=== PATIENT | female | born 1980 | race American Indian/Alaskan Native ===

== ENCOUNTER 2016-12-01 10:53 | Emergency (ER) | payer MEDICAID ==
--- NOTE | 2016-12-01 11:12 | EDM.PDOC ---
ED HPI GENERAL MEDICAL PROBLEM - General Stated Complaint: CHEST PAIN/HANDS SWEATY Time Seen by Provider: 12/01/16 11:05 Source of Information: Reports: Patient History Limitations: Reports: No limitations - History of Present Illness INITIAL COMMENTS - FREE TEXT/NARRATIVE: This 36 yo female patient reports to the ED with chest pains, sweaty palms and feeling like she is going to pass out. The patient was already seen in the clinic this morning, lab work was done, but the patient reports she was feeling worse. The patient came to the ED for treatment. Onset: today Duration: Constant, Getting worse Location: Reports: chest Quality: Reports: Ache Severity: moderate Improves with: Reports: None Worsens with: Reports: None Context: Reports: Other Associated Symptoms: Reports: chest pain - Related Data Allergies Allergy/AdvReac Type Severity Reaction Status Date / Time lorazepam [From Ativan] Allergy Agitation Verified 10/26/16 10:47 Home Meds: Home Meds ClonazePAM [KlonoPIN] 0.5 mg PO QAM 07/22/16 [History] ClonazePAM [KlonoPIN] 2 mg PO BEDTIME 07/22/16 [History] Pantoprazole Sodium [Protonix] 40 mg PO BID 09/28/16 [History] Past Medical History - Past Health History Medical/Surgical History: Denies Medical/Surgical History HEENT History: Reports: Impaired vision Other HEENT History: wears glasses Cardiovascular History: Reports: None Respiratory History: Reports: None Gastrointestinal History: Reports: GERD Genitourinary History: Reports: None 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 OB/BYN History: c-sect Musculoskeletal History: Reports: None Neurological History: Reports: Migraines Psychiatric History: Reports: Anxiety, Depression, Learning disability, Suicide attempt, Suicidal ideation Endocrine/Metabolic History: Reports: None Hematologic History: Reports: None Immunologic History: Reports: None Oncologic (Cancer) History: Reports: None Dermatologic History: Reports: Eczema - Infectious Disease History Infectious Disease History: Reports: Mumps - Past Surgical History Head Surgeries/Procedures: Reports: None HEENT Surgical History: Reports: Eye surgery Cardiovascular Surgical History: Reports: None Respiratory Surgical History: Reports: None GI Surgical History: Reports: Cholecystectomy Female Surgical History: Reports: section Endocrine Surgical History: Reports: None Neurological Surgical History: Reports: None Social & Family History - Family History Family Medical History: Noncontributory Cardiac: Reports: [place], Other (see below) Other Cardiac Family History: mom of cardiac arrest at age 52 : Reports: Renal disease/insufficiency Endocrine/Metabolic: Reports: Diabetes, type II - Tobacco Use Smoking Status *Q: Never Smoker Second Hand Smoke Exposure: No - Caffeine Use Caffeine Use: Reports: None - Alcohol Use Days Per Week of Alcohol Use: 0 - Recreational Drug Use Recreational Drug Use: No - Sexual History Sexual History: Reports: Sexually active - Living Situation & Occupation Living situation: Reports: Occupation: disabled ED ROS GENERAL - Review of Systems Review Of Systems: ROS reveals no pertinent complaints other than HPI. ED EXAM, GENERAL - Physical Exam Exam: See Below Exam Limited By: No limitations General Appearance: alert, WD/WN, anxious, mild distress, obese Eye Exam: bilateral eye: EOMI, normal inspection, PERRL Ears: normal external exam, normal canal, hearing grossly normal, normal TMs Nose: normal inspection, normal mucosa, no blood Throat/Mouth: Normal inspection, Normal lips, Normal teeth, Normal gums, Normal oropharynx, Normal voice, No airway compromise Head: atraumatic, normocephalic Neck: normal inspection, supple, non-tender, full range of motion Respiratory/Chest: no respiratory distress, lungs clear, normal breath sounds, no accessory muscle use, chest non-tender Cardiovascular: normal peripheral pulses, regular rate, rhythm, no edema, no gallop, no JVD, no murmur, no rub GI/Abdominal: normal bowel sounds, soft, non tender, no organomegaly, no distention, no abnormal bruit, no mass (Female) Exam: Deferred Rectal (Female) Exam: Deferred Back Exam: normal inspection, full range of motion, NT Extremities: normal inspection, normal range of motion, non-tender, normal capillary refill, no pedal edema Neurological: alert, oriented, CN II-XII intact, normal cognition, normal gait, normal reflexes, no motor/sensory deficits Psychiatric: anxious Skin Exam: Warm, Dry, Intact, Normal color, No rash Lymphatic: no adenopathy Course - Orders/Labs/Meds Orders: Active Orders 24 hr Category Date Time Status EKG Documentation Completion [RC] URGENT Care 12/01/16 11:03 Active Labs: Laboratory Tests 12/01/16 12/01/16 12/01/16 Range/Units 11:15 11:15 11:15 WBC 4.2 L (5.0-10.0) 10^3/uL RBC 3.97 L (4.2-5.4) 10^6/uL Hgb 10.6 L (12.0-16.0) g/dL Hct 33.1 L (37.0-47.0) % MCV 83.4 (80-100) fL MCH 26.7 L (27.0-34.0) pg MCHC 32.0 L (33.0-35.0) g/dL Plt Count 323 (150-450) 10^3/uL Neut % (Auto) 73.2 (42.2-75.2) % Lymph % (Auto) 19.8 L (20.5-50.1) % [place] % (Auto) 4.7 (2-8) % Eos % (Auto) 2.1 (1.0-3.0) % Baso % (Auto) 0.2 (0.0-1.0) % Sodium 137 (135-145) mmol/L Potassium 3.5 L (3.6-5.0) mmol/L Chloride 105 (101-111) mmol/L Carbon Dioxide 22.0 (21.0-31.0) mmol/L Anion Gap 13.5 BUN 21 H (7-18) mg/dL Creatinine 0.5 L (0.6-1.3) mg/dL Est Cr Clr Drug Dosing TNP Estimated GFR (MDRD) > 60 BUN/Creatinine Ratio 42.00 Glucose 93 (74-105) mg/dL Calcium 8.8 (8.4-10.2) mg/dl Total Bilirubin 0.7 (0.2-1.0) mg/dL AST 20 (10-42) IU/L ALT 16 (10-60) IU/L Alkaline Phosphatase 66 (42-121) IU/L Troponin I < 0.02 (0.00-0.02) ng/ml Total Protein 7.6 (6.7-8.2) g/dl Albumin 3.9 (3.2-5.5) g/dl Globulin 3.7 Albumin/Globulin Ratio 1.05 Urine Color (YELLOW) Urine Appearance (CLEAR) Urine pH (5.0-9.0) Ur Specific [place] (1.005-1.030) Urine Protein (NEGATIVE) Urine Glucose (UA) (NEGATIVE) Urine Ketones (NEGATIVE) Urine Occult Blood (NEGATIVE) Urine Nitrite (NEGATIVE) Urine Bilirubin (NEGATIVE) Urine Urobilinogen (0.2-1.0) mg/dL Ur Leukocyte Esterase (NEGATIVE) Urine RBC /HPF Urine WBC (0-5/HPF) /HPF Ur Epithelial Cells /HPF Urine Bacteria (0-FEW/HPF) /HPF Urine HCG, Qual Salicylates < 4 Urine Opiates Screen (NEGATIVE) Ur Oxycodone Screen (NEGATIVE) Urine Methadone Screen (NEGATIVE) Acetaminophen < 10 Ur Barbiturates Screen (NEGATIVE) U Tricyclic Antidepress (NEGATIVE) Ur Phencyclidine Scrn (NEGATIVE) Ur Amphetamine Screen (NEGATIVE) U Methamphetamines Scrn (NEGATIVE) Urine MDMA Screen (NEGATIVE) U Benzodiazepines Scrn (NEGATIVE) Urine Cocaine Screen (NEGATIVE) U Marijuana (THC) Screen (NEGATIVE) Ethyl Alcohol < 5 mg/dL 12/01/16 12/01/16 12/01/16 Range/Units 11:31 11:31 11:31 WBC (5.0-10.0) 10^3/uL RBC (4.2-5.4) 10^6/uL Hgb (12.0-16.0) g/dL Hct (37.0-47.0) % MCV (80-100) fL MCH (27.0-34.0) pg MCHC (33.0-35.0) g/dL Plt Count (150-450) 10^3/uL Neut % (Auto) (42.2-75.2) % Lymph % (Auto) (20.5-50.1) % [place] % (Auto) (2-8) % Eos % (Auto) (1.0-3.0) % Baso % (Auto) (0.0-1.0) % Sodium (135-145) mmol/L Potassium (3.6-5.0) mmol/L Chloride (101-111) mmol/L Carbon Dioxide (21.0-31.0) mmol/L Anion Gap BUN (7-18) mg/dL Creatinine (0.6-1.3) mg/dL Est Cr Clr Drug Dosing Estimated GFR (MDRD) BUN/Creatinine Ratio Glucose (74-105) mg/dL Calcium (8.4-10.2) mg/dl Total Bilirubin (0.2-1.0) mg/dL AST (10-42) IU/L ALT (10-60) IU/L Alkaline Phosphatase (42-121) IU/L Troponin I (0.00-0.02) ng/ml Total Protein (6.7-8.2) g/dl Albumin (3.2-5.5) g/dl Globulin Albumin/Globulin Ratio Urine Color Red (YELLOW) Urine Appearance Cloudy (CLEAR) Urine pH 6.0 (5.0-9.0) Ur Specific [place] 1.025 (1.005-1.030) Urine Protein 100 H (NEGATIVE) Urine Glucose (UA) Negative (NEGATIVE) Urine Ketones 80 H (NEGATIVE) Urine Occult Blood Large H (NEGATIVE) Urine Nitrite Negative (NEGATIVE) Urine Bilirubin Small H (NEGATIVE) Urine Urobilinogen 4.0 H (0.2-1.0) mg/dL Ur Leukocyte Esterase Negative (NEGATIVE) Urine RBC >100 H /HPF Urine WBC 0-5 (0-5/HPF) /HPF Ur Epithelial Cells Moderate H /HPF Urine Bacteria Moderate H (0-FEW/HPF) /HPF Urine HCG, Qual Negative Salicylates Urine Opiates Screen Negative (NEGATIVE) Ur Oxycodone Screen Negative (NEGATIVE) Urine Methadone Screen Negative (NEGATIVE) Acetaminophen Ur Barbiturates Screen Negative (NEGATIVE) U Tricyclic Antidepress Negative (NEGATIVE) Ur Phencyclidine Scrn Negative (NEGATIVE) Ur Amphetamine Screen Negative (NEGATIVE) U Methamphetamines Scrn Negative (NEGATIVE) Urine MDMA Screen Negative (NEGATIVE) U Benzodiazepines Scrn Negative (NEGATIVE) Urine Cocaine Screen Negative (NEGATIVE) U Marijuana (THC) Screen Negative (NEGATIVE) Ethyl Alcohol mg/dL Departure - Departure Time of Disposition: 12:31 Disposition: Home, Self-Care 01 Condition: fair Clinical Impression: Anxiety Instructions: Panic Attacks, [id number] Care Plan Goals: The patient was advised of the examination, lab and EKG results during the visit. The patient was encouraged to follow-up with her primary care facility for possible medication changes to help with her anxiety. If the patient has any additional symptoms or concerns, the patient should follow-up with her primary care facility or return to the emergency department. - My Orders Last 24 Hours: My Active Orders 12/01/16 11:03 EKG Documentation Completion [RC] URGENT - Assessment/Plan Last 24 Hours: My Active Orders 12/01/16 11:03 EKG Documentation Completion [RC] URGENT
[2016-12-01 11:49] LABS: CHLORIDE,CL 105 mmol/L (101-111); SODIUM,NA 137 mmol/L (135-145)
[2016-12-01 11:50] LABS: ACETAMINOPHEN < 10
[2016-12-01 12:36] VITALS: BP 102/42
--- NOTE | 2016-12-02 11:00 | EKG ---
12/01/2016 - JERMAINE CHILDS - TIME: 11:00 a.m. EKG shows normal sinus rhythm. There is ST-segment elevation inferiorly. It could be a normal variant. [facility] /[id number]
== END 2016-12-01 12:39 | disposition home or self-care (01) ==
LOC: DL.ED 10:53
DX: F41.9 Anxiety disorder, unspecified (principal); K21.9 Gastro-esophageal reflux disease without esophagitis; F32.9 Major depressive disorder, single episode, unspecified; Z98.49 Cataract extraction status, unspecified eye; Z90.49 Acquired absence of other specified parts of digestive tract; Z79.899 Other long term (current) drug therapy; Z88.8 Allergy status to other drugs, medicaments and biological substances
CPT/HCPCS: 36415; 80053; 80305; 81001; 81025; 84484; 85025; 93005; 99284; G0480

== ENCOUNTER 2016-12-03 10:28 | Emergency (ER) | payer MEDICAID ==
--- NOTE | 2016-12-03 10:45 | EDM.PDOC ---
ED HPI Behavioral Health - General Chief Complaint: Behavioral/Psych Stated Complaint: BY AMBULANCE Time Seen by Provider: 12/03/16 10:44 Source of Information: Reports: Patient - History of Present Illness INITIAL COMMENTS - FREE TEXT/NARRATIVE: Pt states that she is having chest pain that she believes may be an anxiety attack but states that she has never had one like this. States that she would like to get into an inpatient hospital for her anxiety. c/o numbness and tingling to extremities as well. no other complaints. 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) - SAD Persons Scale (SPS) SPS Sex: Female SPS Age: Between 18-65 Years of Age SPS Depression: No SPS Previous Suicide Attempts: Yes SPS Alcohol Abuse/Drug Abuse: No SPS Rational Thinking Loss: No SPS Social Support Deficit: No SPS Organized Suicide Plan: No SPS No Spouse/Significant Other: No SPS Sickness: No SPS Sad Person Scale Score: 1 - Related Data Allergies Allergy/AdvReac Type Severity Reaction Status Date / Time lorazepam [From Ativan] Allergy Agitation Verified 10/26/16 10:47 Home Medications: Home Meds ClonazePAM [KlonoPIN] 0.5 mg PO BEDTIME 07/22/16 [History] ClonazePAM [KlonoPIN] 0.5 mg PO QAM 07/22/16 [History] Pantoprazole Sodium [Protonix] 40 mg PO BID 09/28/16 [History] Past Medical History - Past Health History Medical/Surgical History: Denies Medical/Surgical History HEENT History: Reports: Impaired vision Other HEENT History: wears glasses Cardiovascular History: Reports: None Respiratory History: Reports: None Gastrointestinal History: Reports: GERD Genitourinary History: Reports: None 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 OB/BYN History: c-sect Musculoskeletal History: Reports: None Neurological History: Reports: Migraines Psychiatric History: Reports: Anxiety, Depression, Learning disability, Suicide attempt, Suicidal ideation Endocrine/Metabolic History: Reports: None Hematologic History: Reports: None Immunologic History: Reports: None Oncologic (Cancer) History: Reports: None Dermatologic History: Reports: Eczema - Infectious Disease History Infectious Disease History: Reports: Mumps - Past Surgical History Head Surgeries/Procedures: Reports: None HEENT Surgical History: Reports: Eye surgery Cardiovascular Surgical History: Reports: None Respiratory Surgical History: Reports: None GI Surgical History: Reports: Cholecystectomy Female Surgical History: Reports: section Endocrine Surgical History: Reports: None Neurological Surgical History: Reports: None Social & Family History - Family History Family Medical History: Noncontributory Cardiac: Reports: [place], Other (see below) Other Cardiac Family History: mom of cardiac arrest at age 52 : Reports: Renal disease/insufficiency Endocrine/Metabolic: Reports: Diabetes, type II - Tobacco Use Smoking Status *Q: Never Smoker Second Hand Smoke Exposure: No - Caffeine Use Caffeine Use: Reports: None - Alcohol Use Days Per Week of Alcohol Use: 0 - Recreational Drug Use Recreational Drug Use: No - Sexual History Sexual History: Reports: Sexually active - Living Situation & Occupation Living situation: Reports: Occupation: disabled ED ROS GENERAL - Review of Systems Review Of Systems: See Below Respiratory: Reports: No Symptoms Cardiovascular: Reports: Chest pain Psychiatric: Reports: Anxiety ED EXAM, BEHAVIORAL HEALTH - Physical Exam Exam: See Below Exam Limited By: No limitations General Appearance: alert, WD/WN, no apparent distress Respiratory/Chest: no respiratory distress, lungs clear, normal breath sounds, no accessory muscle use, chest non-tender Cardiovascular: normal peripheral pulses, regular rate, rhythm, no edema, no gallop, no JVD, no murmur, no rub Neurological: alert, normal mood/affect, CN II-XII intact, normal cognition, normal gait, normal reflexes, no motor/sensory deficits, oriented x 3 Psychiatric: alert, normal affect, normal cognition, oriented, tearful COURSE, BEHAVIORAL HEALTH COMP - Course Vital Signs: Last Vital Signs Temp 97.3 F 12/03/16 11:28 Pulse 74 12/03/16 11:28 Resp 12 12/03/16 11:28 BP 103/59 L 12/03/16 11:28 Pulse Ox 99 12/03/16 11:28 Orders, Labs, Meds: Active Orders 24 hr Category Date Time Status EKG Documentation Completion [RC] STAT Care 12/03/16 11:00 Active Laboratory Tests 12/03/16 12/03/16 Range/Units 11:18 11:18 Creatine Kinase 140 (26-174) IU/L Creatine Kinase Index 0.9 (0-2.4) % CK-MB (CK-2) 1.30 (0.4-4.7) ng/mL Troponin I < 0.02 (0.00-0.02) ng/ml Medications Discontinued Medications Generic Name Dose Route Start Last Admin Trade Name [place] PRN Reason Stop Dose Admin Alprazolam 0.5 mg 12/03/16 11:57 12/03/16 12:22 Xanax PO 12/03/16 11:58 Not Given ONETIME ONE Clonazepam 1 mg 12/03/16 12:08 Klonopin PO 12/03/16 12:09 ONETIME ONE Re-Assessment/Re-Exam: Pt calm, no complaints. Departure - Departure Time of Disposition: 12:24 Disposition: Home, Self-Care 01 Condition: good Clinical Impression: Panic disorder, Anxiety Instructions: Panic Attacks, [id number] Forms: ED Department Discharge Additional Instructions: Make sure that you follow up with your psych doctor to have your medication readjusted to help decrease your panic attacks. - My Orders Last 24 Hours: My Active Orders 12/03/16 11:00 EKG Documentation Completion [RC] STAT - Assessment/Plan Last 24 Hours: My Active Orders 12/03/16 11:00 EKG Documentation Completion [RC] STAT
[2016-12-03 11:28] VITALS: BP 103/59
[2016-12-03] MEDS ORDERED: ALPRAZolam 0.5 MG Tab PO ONE (11:57)
[2016-12-03] MEDS ORDERED: ClonazePAM 0.5 MG Tab PO ONE (12:08)
--- NOTE | 2016-12-06 11:49 | EKG ---
12/03/2016 - JERMAINE CHILDS - TIME OF EK hours. Normal sinus rhythm. Nonspecific ST-segment changes. [facility] /[id number]
== END 2016-12-03 12:32 | disposition home or self-care (01) ==
LOC: DL.ED 10:28
DX: F41.0 Panic disorder [episodic paroxysmal anxiety] (principal); K21.9 Gastro-esophageal reflux disease without esophagitis; F32.9 Major depressive disorder, single episode, unspecified; Z88.8 Allergy status to other drugs, medicaments and biological substances; Z90.49 Acquired absence of other specified parts of digestive tract; Z79.899 Other long term (current) drug therapy
CPT/HCPCS: 36415; 82550; 82553; 84484; 93005; 99283; A9270

== ENCOUNTER 2016-12-04 09:56 | Emergency (ER) | payer MEDICAID ==
--- NOTE | 2016-12-04 10:39 | EDM.PDOC ---
ED HPI Behavioral Health - General Chief Complaint: Behavioral/Psych Stated Complaint: FEELS WEAK, EYES CROSS Time Seen by Provider: 12/04/16 10:11 Source of Information: Reports: Patient - History of Present Illness INITIAL COMMENTS - FREE TEXT/NARRATIVE: Pt states that she is having anxiety and wants to be placed in an inpatient psych hospital. Denies pain of any kind. States that her anxiety is worse than yesterday but she does not want any medication. Denies suicidal or homicidal ideation. States that she feels like she should be on a higher dose of her klonopin because the higher dose helped however pt is non compliant with psych appointments. Had an appointment on Monday for medication adjustments but was not able to go due to family dynamics. States that she does not want to be placed on antidepressants because it makes her suicidal. States that she does not want to try anything else. She states that she feels stressed. Onset of Symptoms: Reports: today Symptom Onset Date: 12/04/16 Duration of Symptoms: Reports: Chronic Severity: moderate Context, Behavioral Health: Reports: living situation, family dynamics Associated Symptoms: Reports: anxiety - SAD Persons Scale (SPS) SPS Sex: Female SPS Age: Between 18-65 Years of Age SPS Depression: Yes SPS Previous Suicide Attempts: Yes SPS Alcohol Abuse/Drug Abuse: No SPS Rational Thinking Loss: Yes SPS Social Support Deficit: Yes SPS Organized Suicide Plan: No SPS No Spouse/Significant Other: No SPS Sickness: No SPS Sad Person Scale Score: 4 - Related Data Allergies Allergy/AdvReac Type Severity Reaction Status Date / Time lorazepam [From Ativan] Allergy Agitation Verified 10/26/16 10:47 Home Medications: Home Meds ClonazePAM [KlonoPIN] 0.5 mg PO BEDTIME 07/22/16 [History] ClonazePAM [KlonoPIN] 0.5 mg PO QAM 07/22/16 [History] Pantoprazole Sodium [Protonix] 40 mg PO BID 09/28/16 [History] Past Medical History - Past Health History Medical/Surgical History: Denies Medical/Surgical History HEENT History: Reports: Impaired vision Other HEENT History: wears glasses Cardiovascular History: Reports: None Respiratory History: Reports: None Gastrointestinal History: Reports: GERD Genitourinary History: Reports: None 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 OB/BYN History: c-sect Musculoskeletal History: Reports: None Neurological History: Reports: Migraines Psychiatric History: Reports: Anxiety, Depression, Learning disability, Suicide attempt, Suicidal ideation Other Psychiatric History: dependent personality disorder Endocrine/Metabolic History: Reports: None Hematologic History: Reports: None Immunologic History: Reports: None Oncologic (Cancer) History: Reports: None Dermatologic History: Reports: Eczema - Infectious Disease History Infectious Disease History: Reports: Mumps - Past Surgical History Head Surgeries/Procedures: Reports: None HEENT Surgical History: Reports: Eye surgery Cardiovascular Surgical History: Reports: None Respiratory Surgical History: Reports: None GI Surgical History: Reports: Cholecystectomy Female Surgical History: Reports: section Endocrine Surgical History: Reports: None Neurological Surgical History: Reports: None Social & Family History - Family History Family Medical History: Noncontributory Cardiac: Reports: [place], Other (see below) Other Cardiac Family History: mom of cardiac arrest at age 52 : Reports: Renal disease/insufficiency Endocrine/Metabolic: Reports: Diabetes, type II - Tobacco Use Smoking Status *Q: Unknown Ever Smoked Second Hand Smoke Exposure: No - Caffeine Use Caffeine Use: Reports: Soda - Alcohol Use Days Per Week of Alcohol Use: 0 - Recreational Drug Use Recreational Drug Use: No - Sexual History Sexual History: Reports: Sexually active - Living Situation & Occupation Living situation: Reports: Occupation: disabled ED ROS GENERAL - Review of Systems Review Of Systems: ROS reveals no pertinent complaints other than HPI. Psychiatric: Reports: Anxiety ED EXAM, BEHAVIORAL HEALTH - Physical Exam Exam: See Below Exam Limited By: No limitations General Appearance: alert, WD/WN, no apparent distress Ears: normal external exam, normal canal, hearing grossly normal, normal TMs Nose: normal inspection Respiratory/Chest: no respiratory distress, lungs clear, normal breath sounds, no accessory muscle use, chest non-tender Cardiovascular: normal peripheral pulses, regular rate, rhythm, no edema, no gallop, no JVD, no murmur, no rub Neurological: alert, normal mood/affect, CN II-XII intact, normal cognition, normal gait, normal reflexes, no motor/sensory deficits, oriented x 3 Psychiatric: alert, normal affect, normal cognition, oriented, tearful COURSE, BEHAVIORAL HEALTH COMP - Course Vital Signs: Last Vital Signs Temp 96.8 F 12/04/16 10:03 Pulse 81 12/04/16 10:03 Resp 20 12/04/16 10:03 BP 98/72 12/04/16 10:15 Pulse Ox 97 12/04/16 10:03 Re-Assessment/Re-Exam: Complains that no one will help her. Spoke with crisis line who states that patient does not comply and will not meet inpatient criteria. Offered Klonopin however pt states that she does not want it because it will make her sleepy. States that she just wants to go to a psych hospital. Encouraged patient to try her coping mechanisms and to keep her appointment tomorrow with her therapist and to call crisis line when she is felling overwhelmed. Pt is calm, with no s/ s of anxiety currently. States that she will call the crisis line soon. Departure - Departure Time of Disposition: 10:53 Disposition: Home, Self-Care 01 Condition: good Clinical Impression: Anxiety Instructions: Panic Attacks, [id number] Forms: ED Department Discharge
== END 2016-12-04 10:39 | disposition home or self-care (01) ==
LOC: DL.ED 09:56
CPT/HCPCS: 99283

== ENCOUNTER 2016-12-07 15:29 | Emergency (ER) | payer MEDICAID ==
[2016-12-07 15:57] VITALS: BP 99/78
--- NOTE | 2016-12-07 16:19 | EDM.PDOC ---
ED HPI EYE COMPLAINT - General Chief Complaint: Eye Problems Stated Complaint: EYES SEEMS WIERD Time Seen by Provider: 12/07/16 16:13 Source: Reports: Patient History Limitations: Reports: No limitations - History of Present Illness INITIAL COMMENTS - FREE TEXT/NARRATIVE: Pt states that she has been having a headache since monday with vision changes. Denies being the worst headache and states that she has had similar pain in the past. Went to see an eye doctor today who told her to follow up with a neurologist. States that she felt like she is now seeing "pepper-like spots in my eyes that just started while I was reading, but the eye doctor did not have any more appointments and the clinic did not have appointments so they told me to go to the ER if things got worse". Denies other complaints currently. Symptom Onset Date: 12/07/16 Symptom Onset Time: 14:00 Timing/Duration: Reports: Getting worse Quality: Reports: Ache, Same as previous episode Improves with: Reports: None Worsens with: Reports: None - Related Data Allergies/ADRs: Allergies lorazepam [From Ativan] Allergy (Verified 12/08/16 08:50) Agitation pt taking clonazepam currently Home Meds: Ambulatory Orders Medication Instructions Recorded Confirmed ClonazePAM [KlonoPIN] 0.5 mg PO BEDTIME 07/22/16 12/08/16 ClonazePAM [KlonoPIN] 0.5 mg PO QAM 07/22/16 12/08/16 Pantoprazole Sodium [Protonix] 40 mg PO BID 09/28/16 12/08/16 Citalopram Hydrobromide [Celexa] 20 mg PO DAILY 12/07/16 12/08/16 Past Medical History - Past Health History Medical/Surgical History: Denies Medical/Surgical History HEENT History: Reports: Impaired vision Other HEENT History: wears glasses Cardiovascular History: Reports: None Respiratory History: Reports: None Gastrointestinal History: Reports: GERD Genitourinary History: Reports: None 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 OB/BYN History: c-sect Musculoskeletal History: Reports: None Neurological History: Reports: Migraines Psychiatric History: Reports: Anxiety, Depression, Learning disability, Suicide attempt, Suicidal ideation Other Psychiatric History: dependent personality disorder Endocrine/Metabolic History: Reports: None Hematologic History: Reports: None Immunologic History: Reports: None Oncologic (Cancer) History: Reports: None Dermatologic History: Reports: Eczema - Infectious Disease History Infectious Disease History: Reports: Chicken pox, Mumps - Past Surgical History Head Surgeries/Procedures: Reports: None HEENT Surgical History: Reports: Eye surgery Cardiovascular Surgical History: Reports: None Respiratory Surgical History: Reports: None GI Surgical History: Reports: Cholecystectomy Female Surgical History: Reports: section Endocrine Surgical History: Reports: None Neurological Surgical History: Reports: None Social & Family History - Family History Family Medical History: Noncontributory Cardiac: Reports: [place], Other (see below) Other Cardiac Family History: mom of cardiac arrest at age 52 : Reports: Renal disease/insufficiency Endocrine/Metabolic: Reports: Diabetes, type II - Tobacco Use Smoking Status *Q: Never Smoker Second Hand Smoke Exposure: No - Caffeine Use Caffeine Use: Reports: Soda - Alcohol Use Days Per Week of Alcohol Use: 0 - Recreational Drug Use Recreational Drug Use: No - Sexual History Sexual History: Reports: Sexually active - Living Situation & Occupation Living situation: Reports: Occupation: disabled ED ROS GENERAL - Review of Systems Review Of Systems: See Below HEENT: Reports: Vision change Neurological: Reports: Headache ED EXAM GENERAL W FULL EYE - Physical Exam Exam: See Below Exam Limited By: No limitations General Appearance: alert, WD/WN, no apparent distress Eye Exam: bilateral eye: EOMI, normal inspection, PERRL With Correction: Yes Eyelids: bilateral: normal appearance Conjunctiva & Sclera: bilateral: normal appearance Cornea Exam: bilateral: normal appearance Extraocular Movements: bilateral: intact Pupils: normal accommodation Pupillary Size: bilateral: 4 mm Pupillary Reaction: bilateral: brisk Anterior Chamber: bilateral: normal appearance Posterior Chamber: bilateral: normal funduscopic Ears: normal external exam, other (fluid behind TM bilaterally) Nose: normal inspection, normal mucosa, no blood Throat/Mouth: Normal inspection, Normal lips, Normal teeth, Normal gums, Normal oropharynx, Normal voice, No airway compromise Head: atraumatic Neck: normal inspection, supple, non-tender, full range of motion Respiratory/Chest: no respiratory distress, lungs clear, normal breath sounds, no accessory muscle use, chest non-tender Cardiovascular: normal peripheral pulses, regular rate, rhythm, no edema, no gallop, no JVD, no murmur, no rub Neurological: alert, oriented, CN II-XII intact, normal cognition, normal gait, normal reflexes, no motor/sensory deficits Psychiatric: normal affect, normal mood Course - Vital Signs Last Recorded V/S: Last Vital Signs Temp 98.0 F 12/07/16 15:53 Pulse 86 12/07/16 15:53 Resp 20 12/07/16 15:53 BP 99/78 12/07/16 15:53 Pulse Ox 99 12/07/16 15:53 - Orders/Labs/Meds Orders: Active Orders 24 hr Category Date Time Status Blood Glucose Check, Bedside [RC] ONETIME Care 12/07/16 16:57 Active Labs: Laboratory Tests 12/07/16 Range/Units 17:18 POC Glucose 71 (70-105) mg/dl Meds: Medications Discontinued Medications Generic Name Dose Route Start Last Admin Trade Name Maico PRN Reason Stop Dose Admin Ibuprofen 800 mg 12/07/16 17:00 12/07/16 17:18 Motrin PO 12/07/16 17:01 Not Given ONETIME ONE - Re-Assessments/Exams Free Text/Narrative Re-Assessment/Exam: 12/07/16 17:38 Informed pt that she did not need CT of her head and pt now c/o dizziness. Denies Headache now. Pt continues to change story of cheif complaint. States that she needs a head CT. States that she wants to go to [place] to see a neurologist because none are available currently at this facility. Per pt, she is being set up with a neurologist by her PCP. Departure - Departure Time of Disposition: 18:00 Disposition: Against Medical Advice 07 Condition: good Clinical Impression: Headache Qualifiers: Headache type: unspecified Headache chronicity pattern: acute headache Intractability: not intractable Qualified Code(s): R51 - Headache Instructions: General Headache Without Cause Forms: ED Department Discharge - My Orders Last 24 Hours: My Active Orders 12/07/16 16:57 Blood Glucose Check, Bedside [RC] ONETIME - Assessment/Plan Last 24 Hours: My Active Orders 12/07/16 16:57 Blood Glucose Check, Bedside [RC] ONETIME
[2016-12-07] MEDS ORDERED: Ibuprofen 800 MG Tab PO ONE (17:00)
== END 2016-12-07 17:44 | disposition left against medical advice (07) ==
LOC: DL.ED 15:29
DX: R51 Headache (principal); K21.9 Gastro-esophageal reflux disease without esophagitis; F41.9 Anxiety disorder, unspecified; F32.9 Major depressive disorder, single episode, unspecified; Z90.49 Acquired absence of other specified parts of digestive tract; Z88.8 Allergy status to other drugs, medicaments and biological substances
CPT/HCPCS: 82962; 99283

== ENCOUNTER 2016-12-08 08:22 | Emergency (ER) | payer MEDICAID ==
--- NOTE | 2016-12-08 09:15 | EDM.PDOC ---
ED HPI Behavioral Health - General Chief Complaint: General Stated Complaint: [id number] BODY FEELS WEIRD Time Seen by Provider: 12/08/16 09:10 Source of Information: Reports: Patient Exam Limitations: Reports: No limitations - History of Present Illness INITIAL COMMENTS - FREE TEXT/NARRATIVE: Pt states that she has an appointment with her PCP this am but wants to be "checked for diabetes". Pt was present yesterday and had a blood glucose check that was WNL and has a family history of diabetes. Symptom Onset Date: 12/08/16 - Related Data Allergies Allergy/AdvReac Type Severity Reaction Status Date / Time lorazepam [From Ativan] Allergy Agitation Verified 12/08/16 08:50 Home Medications: Home Meds ClonazePAM [KlonoPIN] 0.5 mg PO BEDTIME 07/22/16 [History] ClonazePAM [KlonoPIN] 0.5 mg PO QAM 07/22/16 [History] Pantoprazole Sodium [Protonix] 40 mg PO BID 09/28/16 [History] Citalopram Hydrobromide [Celexa] 20 mg PO DAILY 12/07/16 [History] Past Medical History - Past Health History Medical/Surgical History: Denies Medical/Surgical History HEENT History: Reports: Impaired vision Other HEENT History: wears glasses Cardiovascular History: Reports: None Respiratory History: Reports: None Gastrointestinal History: Reports: GERD Genitourinary History: Reports: None 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 OB/BYN History: c-sect Musculoskeletal History: Reports: None Neurological History: Reports: Migraines Psychiatric History: Reports: Anxiety, Depression, Learning disability, Suicide attempt, Suicidal ideation Other Psychiatric History: dependent personality disorder Endocrine/Metabolic History: Reports: None Hematologic History: Reports: None Immunologic History: Reports: None Oncologic (Cancer) History: Reports: None Dermatologic History: Reports: Eczema - Infectious Disease History Infectious Disease History: Reports: Chicken pox, Mumps - Past Surgical History Head Surgeries/Procedures: Reports: None HEENT Surgical History: Reports: Eye surgery Cardiovascular Surgical History: Reports: None Respiratory Surgical History: Reports: None GI Surgical History: Reports: Cholecystectomy Female Surgical History: Reports: section Endocrine Surgical History: Reports: None Neurological Surgical History: Reports: None Social & Family History - Family History Family Medical History: Noncontributory Cardiac: Reports: [place], Other (see below) Other Cardiac Family History: mom of cardiac arrest at age 52 : Reports: Renal disease/insufficiency Endocrine/Metabolic: Reports: Diabetes, type II - Tobacco Use Smoking Status *Q: Never Smoker Second Hand Smoke Exposure: No - Caffeine Use Caffeine Use: Reports: Soda - Alcohol Use Days Per Week of Alcohol Use: 0 - Recreational Drug Use Recreational Drug Use: No - Sexual History Sexual History: Reports: Sexually active - Living Situation & Occupation Living situation: Reports: Occupation: disabled ED ROS GENERAL - Review of Systems Review Of Systems: ROS reveals no pertinent complaints other than HPI. ED EXAM, BEHAVIORAL HEALTH - Physical Exam Exam: See Below Exam Limited By: No limitations General Appearance: alert, WD/WN, no apparent distress Eye Exam: bilateral eye: PERRL Respiratory/Chest: no respiratory distress, lungs clear, normal breath sounds, no accessory muscle use, chest non-tender Cardiovascular: normal peripheral pulses, regular rate, rhythm, no edema, no gallop, no JVD, no murmur, no rub GI/Abdominal: normal bowel sounds, soft, non tender, no organomegaly, no distention, no abnormal bruit, no mass Neurological: alert, normal mood/affect, CN II-XII intact, normal cognition, normal gait, normal reflexes, no motor/sensory deficits, oriented x 3 Psychiatric: alert, normal affect, normal cognition, normal mood, oriented COURSE, BEHAVIORAL HEALTH COMP - Course Vital Signs: Last Vital Signs Temp 96.6 F 12/08/16 08:36 Pulse 74 12/08/16 08:36 Resp 16 12/08/16 08:36 BP 106/60 12/08/16 08:36 Pulse Ox 100 12/08/16 08:36 Re-Assessment/Re-Exam: Pt states that she wants to go because she thought that she had diabetes and not that she had a family history of diabetes. Departure - Departure Time of Disposition: 09:22 Disposition: Home, Self-Care 01 Condition: good Clinical Impression: Encounter for medical screening examination Forms: ED Department Discharge Additional Instructions: Please keep your appointment today. Return for any worsening symptoms.
== END 2016-12-08 09:25 | disposition home or self-care (01) ==
LOC: DL.ED 08:22
CPT/HCPCS: 99285

== ENCOUNTER 2016-12-11 09:07 | Emergency (ER) | payer MEDICAID ==
[2016-12-11 09:24] VITALS: BP 117/74
--- NOTE | 2016-12-11 09:41 | EDM.PDOC ---
ED HPI GENERAL MEDICAL PROBLEM - General Chief Complaint: Chest Pain Stated Complaint: [id number] CHEST PAIN Time Seen by Provider: 12/11/16 09:36 Source of Information: Reports: Patient History Limitations: Reports: No limitations - History of Present Illness INITIAL COMMENTS - FREE TEXT/NARRATIVE: 36 yo [place] Female c/o weakness and dizziness. Pt. states she was seen at [facility] and found to have low iron level and started on iron tabs BID Onset: unknown/unsure Onset Date: 12/10/16 Onset Time: 12:00 Duration: Day(s): Location: Reports: generalized Severity: moderate Improves with: Reports: Rest Worsens with: Reports: Movement Context: Reports: Other (Pt. is taking psych meds ( Celexa and Klonopin)) Associated Symptoms: Reports: chest pain Shoulder Pain Score (Numeric/FACES): 4 - Related Data Allergies Allergy/AdvReac Type Severity Reaction Status Date / Time lorazepam [From Ativan] Allergy Agitation Verified 12/11/16 09:15 Home Meds: Home Meds ClonazePAM [KlonoPIN] 0.5 mg PO BEDTIME 07/22/16 [History] ClonazePAM [KlonoPIN] 0.5 mg PO QAM 07/22/16 [History] Pantoprazole Sodium [Protonix] 40 mg PO BID 09/28/16 [History] Citalopram Hydrobromide [Celexa] 20 mg PO BEDTIME 12/07/16 [History] Past Medical History - Past Health History Medical/Surgical History: Denies Medical/Surgical History HEENT History: Reports: Impaired vision Other HEENT History: wears glasses Cardiovascular History: Reports: None Respiratory History: Reports: None Gastrointestinal History: Reports: GERD Genitourinary History: Reports: None 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 OB/BYN History: c-sect Musculoskeletal History: Reports: None Neurological History: Reports: Migraines Psychiatric History: Reports: Anxiety, Depression, Learning disability, Suicide attempt, Suicidal ideation Other Psychiatric History: dependent personality disorder Endocrine/Metabolic History: Reports: None Hematologic History: Reports: None Immunologic History: Reports: None Oncologic (Cancer) History: Reports: None Dermatologic History: Reports: Eczema - Infectious Disease History Infectious Disease History: Reports: Chicken pox, Mumps - Past Surgical History Head Surgeries/Procedures: Reports: None HEENT Surgical History: Reports: Eye surgery Cardiovascular Surgical History: Reports: None Respiratory Surgical History: Reports: None GI Surgical History: Reports: Cholecystectomy Female Surgical History: Reports: section Endocrine Surgical History: Reports: None Neurological Surgical History: Reports: None Social & Family History - Family History Family Medical History: Noncontributory Cardiac: Reports: [place], Other (see below) Other Cardiac Family History: mom of cardiac arrest at age 52 : Reports: Renal disease/insufficiency Endocrine/Metabolic: Reports: Diabetes, type II - Tobacco Use Smoking Status *Q: Never Smoker Second Hand Smoke Exposure: No - Caffeine Use Caffeine Use: Reports: None - Alcohol Use Days Per Week of Alcohol Use: 0 - Recreational Drug Use Recreational Drug Use: No - Sexual History Sexual History: Reports: Sexually active - Living Situation & Occupation Living situation: Reports: Occupation: disabled ED ROS GENERAL - Review of Systems Review Of Systems: See Below Constitutional: Reports: weakness HEENT: Reports: No symptoms Respiratory: Reports: No Symptoms Cardiovascular: Reports: No symptoms, Chest pain Endocrine: Reports: no symptoms GI/Abdominal: Reports: No symptoms : Reports: no symptoms Musculoskeletal: Reports: no symptoms Skin: Reports: no symptoms Neurological: Reports: Dizziness Psychiatric: Reports: Anxiety Hematologic/Lymphatic: Reports: no symptoms Immunologic: Reports: no symptoms ED EXAM, GENERAL - Physical Exam Exam: See Below Exam Limited By: No limitations General Appearance: alert, no apparent distress Eye Exam: bilateral eye: EOMI Ears: normal external exam Ear Exam: bilateral ear: TM normal Nose: normal inspection Throat/Mouth: Normal inspection Head: atraumatic Neck: normal inspection, supple Respiratory/Chest: no respiratory distress, lungs clear Cardiovascular: normal peripheral pulses, regular rate, rhythm GI/Abdominal: normal bowel sounds, soft Back Exam: normal inspection Extremities: normal inspection, normal range of motion Neurological: alert, oriented, CN II-XII intact, normal cognition Psychiatric: normal affect, normal mood, flat affect Skin Exam: Warm, Dry, Intact Lymphatic: no adenopathy Course - Vital Signs Last Recorded V/S: Last Vital Signs Temp 35.8 C 12/11/16 09:17 Pulse 94 12/11/16 09:17 Resp 18 12/11/16 09:17 BP 117/74 12/11/16 09:17 Pulse Ox 100 12/11/16 09:17 - Orders/Labs/Meds Labs: Laboratory Tests 12/11/16 12/11/16 12/11/16 Range/Units 10:15 10:51 10:51 WBC 4.9 L (5.0-10.0) 10^3/uL RBC 4.27 (4.2-5.4) 10^6/uL Hgb 11.0 L (12.0-16.0) g/dL Hct 35.5 L (37.0-47.0) % MCV 83.1 (80-100) fL MCH 25.8 L (27.0-34.0) pg MCHC 31.0 L (33.0-35.0) g/dL Plt Count 282 (150-450) 10^3/uL Neut % (Auto) 72.3 (42.2-75.2) % Lymph % (Auto) 17.5 L (20.5-50.1) % Lamb % (Auto) 8.8 H (2-8) % Eos % (Auto) 1.2 (1.0-3.0) % Baso % (Auto) 0.2 (0.0-1.0) % Sodium 138 (135-145) mmol/L Potassium 4.1 (3.6-5.0) mmol/L Chloride 104 (101-111) mmol/L Carbon Dioxide 23.0 (21.0-31.0) mmol/L Anion Gap 15.1 BUN 13 (7-18) mg/dL Creatinine 0.6 (0.6-1.3) mg/dL Est Cr Clr Drug Dosing 104.49 mL/min Estimated GFR (MDRD) > 60 BUN/Creatinine Ratio 21.66 Glucose 76 (74-105) mg/dL Calcium 9.2 (8.4-10.2) mg/dl Total Bilirubin 1.0 (0.2-1.0) mg/dL AST 23 (10-42) IU/L ALT 17 (10-60) IU/L Alkaline Phosphatase 60 (42-121) IU/L Total Protein 7.9 (6.7-8.2) g/dl Albumin 4.2 (3.2-5.5) g/dl Globulin 3.7 Albumin/Globulin Ratio 1.14 Urine Color Yellow (YELLOW) Urine Appearance Slightly cloudy (CLEAR) Urine pH 6.0 (5.0-9.0) Ur Specific [place] >= 1.030 (1.005-1.030) Urine Protein 100 H (NEGATIVE) Urine Glucose (UA) Negative (NEGATIVE) Urine Ketones >=160 H (NEGATIVE) Urine Occult Blood Negative (NEGATIVE) Urine Nitrite Negative (NEGATIVE) Urine Bilirubin Small H (NEGATIVE) Urine Urobilinogen 1.0 (0.2-1.0) mg/dL Ur Leukocyte Esterase Negative (NEGATIVE) Urine RBC 0-5 /HPF Urine WBC 0-5 (0-5/HPF) /HPF Ur Epithelial Cells Many H /HPF Urine Bacteria Moderate H (0-FEW/HPF) /HPF Urine Mucus Many H /LPF Meds: Medications Discontinued Medications Generic Name Dose Route Start Last Admin Trade Name Freq PRN Reason Stop Dose Admin Sodium Chloride 1,000 mls @ 999 mls/hr 12/11/16 10:44 12/11/16 10:56 Normal Saline IV 12/11/16 11:44 999 mls/hr .BOLUS ONE Administration Departure - Departure Time of Disposition: 13:14 Disposition: Home, Self-Care 01 Condition: good Clinical Impression: Weakness, Dehydration, Psychiatric problem Forms: ED Department Discharge Additional Instructions: 1) Increase intake of Fluids ( Juice /Water) 2) Improve eating program ( Eat more fresh fruits and vegetables) 3) Try taking Nutritional Supplements ( Boost, Ensure and Ensure Plus) 4) F/U w/ Neurology and Behavioral Health 5) Rest
[2016-12-11] MEDS ORDERED: Sodium Chloride 0.9% 1,000 ML IV ONE (10:44)
[2016-12-11 11:19] LABS: CHLORIDE,CL 104 mmol/L (101-111); SODIUM,NA 138 mmol/L (135-145)
== END 2016-12-11 13:36 | disposition home or self-care (01) ==
LOC: DL.ED 09:07
DX: E86.0 Dehydration (principal); F99 Mental disorder, not otherwise specified; K21.9 Gastro-esophageal reflux disease without esophagitis; F41.9 Anxiety disorder, unspecified; F32.9 Major depressive disorder, single episode, unspecified; Z79.899 Other long term (current) drug therapy; Z90.49 Acquired absence of other specified parts of digestive tract
CPT/HCPCS: 36415; 80053; 81001; 85025; 96360; 99284; J7030

== ENCOUNTER 2016-12-19 11:15 | Emergency (ER) | payer MEDICAID ==
--- NOTE | 2016-12-19 12:30 | EDM.PDOC ---
ED HPI GENERAL MEDICAL PROBLEM - General Chief Complaint: Headache Stated Complaint: PRESSURE ON HEAD [phone] Time Seen by Provider: 12/19/16 12:20 Source of Information: Reports: Patient History Limitations: Reports: No limitations - History of Present Illness INITIAL COMMENTS - FREE TEXT/NARRATIVE: This 36 yo female patient reports she has been experiencing increased pressure in her head, ears and face. The patient has been seen by her primary care facility and by Dr. Wynn (Neurology) for similar symptoms. The patient has an MRI scheduled for later this month. Onset: gradual Duration: Day(s):, Constant Location: Reports: head Quality: Reports: Ache, Dull Severity: moderate Improves with: Reports: None Worsens with: Reports: None Associated Symptoms: Reports: no other symptoms - Related Data Allergies Allergy/AdvReac Type Severity Reaction Status Date / Time lorazepam [From Ativan] Allergy Agitation Verified 12/11/16 09:15 Home Meds: Home Meds ClonazePAM [KlonoPIN] 0.5 mg PO BEDTIME 07/22/16 [History] ClonazePAM [KlonoPIN] 0.5 mg PO QAM 07/22/16 [History] Pantoprazole Sodium [Protonix] 40 mg PO BID 09/28/16 [History] Citalopram Hydrobromide [Celexa] 20 mg PO BEDTIME 12/07/16 [History] Past Medical History - Past Health History Medical/Surgical History: Denies Medical/Surgical History HEENT History: Reports: Impaired vision Other HEENT History: wears glasses Cardiovascular History: Reports: None Respiratory History: Reports: None Gastrointestinal History: Reports: GERD Genitourinary History: Reports: None 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/BYN History: c-sect Musculoskeletal History: Reports: None Neurological History: Reports: Migraines Psychiatric History: Reports: Anxiety, Depression, Learning disability, Suicide attempt, Suicidal ideation Other Psychiatric History: dependent personality disorder Endocrine/Metabolic History: Reports: None Hematologic History: Reports: None Immunologic History: Reports: None Oncologic (Cancer) History: Reports: None Dermatologic History: Reports: Eczema - Infectious Disease History Infectious Disease History: Reports: Chicken pox, Mumps - Past Surgical History Head Surgeries/Procedures: Reports: None HEENT Surgical History: Reports: Eye surgery Cardiovascular Surgical History: Reports: None Respiratory Surgical History: Reports: None GI Surgical History: Reports: Cholecystectomy Female Surgical History: Reports: section Endocrine Surgical History: Reports: None Neurological Surgical History: Reports: None Social & Family History - Family History Family Medical History: Noncontributory Cardiac: Reports: [place], Other (see below) Other Cardiac Family History: mom of cardiac arrest at age 52 : Reports: Renal disease/insufficiency Endocrine/Metabolic: Reports: Diabetes, type II - Tobacco Use Smoking Status *Q: Never Smoker Second Hand Smoke Exposure: No - Caffeine Use Caffeine Use: Reports: None - Alcohol Use Days Per Week of Alcohol Use: 0 - Recreational Drug Use Recreational Drug Use: No - Sexual History Sexual History: Reports: Sexually active - Living Situation & Occupation Living situation: Reports: Occupation: disabled ED ROS GENERAL - Review of Systems Review Of Systems: ROS reveals no pertinent complaints other than HPI. ED EXAM, GENERAL - Physical Exam Exam: See Below Exam Limited By: No limitations General Appearance: alert, WD/WN, no apparent distress Eye Exam: bilateral eye: EOMI, normal inspection, PERRL Ear Exam: bilateral ear: auricle normal, canal normal, other (TM retraction) Nose: normal inspection, normal mucosa, no blood Throat/Mouth: Normal inspection, Normal lips, Normal teeth, Normal gums, Normal oropharynx, Normal voice, No airway compromise Head: atraumatic, normocephalic Neck: normal inspection, supple, non-tender, full range of motion Respiratory/Chest: no respiratory distress, lungs clear, normal breath sounds, no accessory muscle use, chest non-tender Cardiovascular: normal peripheral pulses, regular rate, rhythm, no edema, no gallop, no JVD, no murmur, no rub GI/Abdominal: normal bowel sounds, soft, non tender, no organomegaly, no distention, no abnormal bruit, no mass (Female) Exam: Deferred Rectal (Female) Exam: Deferred Back Exam: normal inspection, full range of motion, NT Extremities: normal inspection, normal range of motion, non-tender, normal capillary refill, no pedal edema Neurological: alert, oriented, CN II-XII intact, normal cognition, normal gait, normal reflexes, no motor/sensory deficits Psychiatric: normal affect, normal mood Skin Exam: Warm, Dry, Intact, Normal color, No rash Lymphatic: no adenopathy Departure - Departure Time of Disposition: 12:26 Disposition: Home, Self-Care 01 Condition: fair Clinical Impression: Eustachian tube dysfunction Qualifiers: Laterality: bilateral Qualified Code(s): H69.83 - Other specified disorders of Eustachian tube, bilateral Forms: ED Department Discharge Care Plan Goals: The patient was advised of the examination results during the visit. The patient was encouraged to take [id number] decongestants. The patient may also chew gum to increase movement of air/fluids. If the patient has any additional symptoms or concerns, the patient should follow-up with her primary care facility or return to the emergency department.
[2016-12-19 13:26] VITALS: BP 109/56
== END 2016-12-19 12:33 | disposition home or self-care (01) ==
LOC: DL.ED 11:15
DX: H69.83 Other specified disorders of Eustachian tube, bilateral (principal); E11.9 Type 2 diabetes mellitus without complications; Z79.899 Other long term (current) drug therapy
CPT/HCPCS: 99282

== ENCOUNTER 2016-12-23 09:33 | Emergency (ER) | payer MEDICAID ==
--- NOTE | 2016-12-23 09:38 | EDM.PDOC ---
ED HPI GENERAL MEDICAL PROBLEM - General Chief Complaint: General Stated Complaint: DIZZY Time Seen by Provider: 12/23/16 09:38 Source of Information: Reports: Patient, Old records, RN, RN notes reviewed History Limitations: Reports: No limitations - Related Data Allergies Allergy/AdvReac Type Severity Reaction Status Date / Time lorazepam [From Ativan] Allergy Agitation Verified 12/19/16 13:26 Home Meds: Home Meds ClonazePAM [KlonoPIN] 0.5 mg PO BEDTIME 07/22/16 [History] ClonazePAM [KlonoPIN] 0.5 mg PO QAM 07/22/16 [History] Pantoprazole Sodium [Protonix] 40 mg PO BID 09/28/16 [History] Citalopram Hydrobromide [Celexa] 20 mg PO BEDTIME 12/07/16 [History] Past Medical History - Past Health History Medical/Surgical History: Denies Medical/Surgical History HEENT History: Reports: Impaired vision Other HEENT History: wears glasses Cardiovascular History: Reports: None Respiratory History: Reports: None Gastrointestinal History: Reports: GERD Genitourinary History: Reports: None 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: Other OB/BYN History: c-sect Musculoskeletal History: Reports: None Neurological History: Reports: Migraines Psychiatric History: Reports: Anxiety, Depression, Learning disability, Suicide attempt, Suicidal ideation Other Psychiatric History: dependent personality disorder Endocrine/Metabolic History: Reports: None Hematologic History: Reports: None Immunologic History: Reports: None Oncologic (Cancer) History: Reports: None Dermatologic History: Reports: Eczema - Infectious Disease History Infectious Disease History: Reports: Chicken pox, Mumps - Past Surgical History Head Surgeries/Procedures: Reports: None HEENT Surgical History: Reports: Eye surgery Cardiovascular Surgical History: Reports: None Respiratory Surgical History: Reports: None GI Surgical History: Reports: Cholecystectomy Female Surgical History: Reports: section Endocrine Surgical History: Reports: None Neurological Surgical History: Reports: None Social & Family History - Family History Family Medical History: Noncontributory Cardiac: Reports: [place], Other (see below) Other Cardiac Family History: mom of cardiac arrest at age 52 : Reports: Renal disease/insufficiency Endocrine/Metabolic: Reports: Diabetes, type II - Tobacco Use Smoking Status *Q: Never Smoker Second Hand Smoke Exposure: No - Caffeine Use Caffeine Use: Reports: None - Alcohol Use Days Per Week of Alcohol Use: 0 - Recreational Drug Use Recreational Drug Use: No - Sexual History Sexual History: Reports: Sexually active - Living Situation & Occupation Living situation: Reports: Occupation: disabled Departure - Departure Forms: ED Department Discharge
[2016-12-23 09:43] VITALS: BP 114/86
== END 2016-12-23 09:55 | disposition left against medical advice (07) ==
LOC: DL.ED 09:33
DX: Z53.21 Procedure and treatment not carried out due to patient leaving prior to being seen by health care provider (principal)
CPT/HCPCS: 99283

== ENCOUNTER 2016-12-24 09:53 | Emergency (ER) | payer MEDICAID ==
[2016-12-24 10:01] VITALS: BP 123/61
--- NOTE | 2016-12-24 10:17 | EDM.PDOC ---
ED HPI DIZZINESS - General Chief Complaint: Gastrointestinal Problem Stated Complaint: IN BY AMBULANCE Time Seen by Provider: 12/24/16 10:12 Source of Information: Reports: Patient, EMS Exam Limitations: Reports: No limitations - History of Present Illness INITIAL COMMENTS - FREE TEXT/NARRATIVE: 36 yo [place] Female brought in by ambulance after she called ER about her "vertigo". Pt. has been seen on many occasions in this ER. Pt. has long standing Psychiatric problems and [facility] and has appt. for Monday12/26/2016. Pt. takes Klonopin for Anxiety. Pt. came to this ER yesterday and then left AMA Symptom Onset Date: 12/18/16 Symptom Onset Time: 12:00 Timing/Duration: Reports: Week(s): Baseline Function: Reports: ambulatory Quality: Reports: vertigo (Possibly non-compliant with taking Meclizine) Severity: mild - Related Data Allergies/ADRs: Allergies Allergy/AdvReac Type Severity Reaction Status Date / Time lorazepam [From Ativan] Allergy Agitation Verified 12/23/16 09:45 Home Meds: Home Meds ClonazePAM [KlonoPIN] 0.5 mg PO BEDTIME 07/22/16 [History] ClonazePAM [KlonoPIN] 0.5 mg PO QAM 07/22/16 [History] Pantoprazole Sodium [Protonix] 40 mg PO BID 09/28/16 [History] Citalopram Hydrobromide [Celexa] 20 mg PO BEDTIME 12/07/16 [History] Past Medical History - Past Health History Medical/Surgical History: Denies Medical/Surgical History HEENT History: Reports: Impaired vision Other HEENT History: wears glasses Cardiovascular History: Reports: None Respiratory History: Reports: None Gastrointestinal History: Reports: GERD Genitourinary History: Reports: None PATIENT LIAISON History: Reports: Other OB/BYN History: c-sect Musculoskeletal History: Reports: None Neurological History: Reports: Migraines Psychiatric History: Reports: Anxiety, Depression, Learning disability, Suicide attempt, Suicidal ideation Other Psychiatric History: dependent personality disorder Endocrine/Metabolic History: Reports: None Hematologic History: Reports: None Immunologic History: Reports: None Oncologic (Cancer) History: Reports: None Dermatologic History: Reports: Eczema - Infectious Disease History Infectious Disease History: Reports: Chicken pox, Mumps - Past Surgical History Head Surgeries/Procedures: Reports: None HEENT Surgical History: Reports: Eye surgery Cardiovascular Surgical History: Reports: None Respiratory Surgical History: Reports: None GI Surgical History: Reports: Cholecystectomy Female Surgical History: Reports: section Endocrine Surgical History: Reports: None Neurological Surgical History: Reports: None Social & Family History - Family History Family Medical History: Noncontributory Cardiac: Reports: [place], Other (see below) Other Cardiac Family History: mom of cardiac arrest at age 52 : Reports: Renal disease/insufficiency Endocrine/Metabolic: Reports: Diabetes, type II - Tobacco Use Smoking Status *Q: Never Smoker Second Hand Smoke Exposure: No - Caffeine Use Caffeine Use: Reports: None - Alcohol Use Days Per Week of Alcohol Use: 0 - Recreational Drug Use Recreational Drug Use: No - Sexual History Sexual History: Reports: Sexually active - Living Situation & Occupation Living situation: Reports: Occupation: disabled ED ROS GENERAL - Review of Systems Review Of Systems: See Below Constitutional: Reports: no symptoms HEENT: Reports: No symptoms Respiratory: Reports: No Symptoms Cardiovascular: Reports: No symptoms Endocrine: Reports: no symptoms GI/Abdominal: Reports: No symptoms : Reports: no symptoms Musculoskeletal: Reports: no symptoms Skin: Reports: no symptoms Neurological: Reports: Dizziness Psychiatric: Reports: Anxiety, Depression Hematologic/Lymphatic: Reports: no symptoms Immunologic: Reports: no symptoms ED EXAM, DIZZINESS - Physical Exam Exam: See Below Exam Limited By: No limitations General Appearance: alert, no apparent distress Eye Exam: bilateral eye: PERRL Ears: normal external exam, normal canal, hearing grossly normal, normal TMs Nose: normal inspection, normal mucosa Throat/Mouth: Normal inspection, Normal lips, Normal teeth Head Exam: atraumatic, normocephalic Vertigo: short duration Neck: normal inspection, supple Respiratory/Chest: no respiratory distress, lungs clear Cardiovascular: normal peripheral pulses, regular rate, rhythm GI/Abdominal: normal bowel sounds Neurological: alert, normal mood/affect, normal dorsiflexion, CN II-XII intact Back Exam: normal inspection Extremities: normal inspection Psychiatric: anxious, depressed mood, tearful Skin Exam: Warm, Dry, Intact, Normal color Course - Vital Signs Last Recorded V/S: Last Vital Signs Temp 36.7 C 12/24/16 10:00 Pulse 91 12/24/16 10:00 Resp 16 12/24/16 10:00 BP 123/61 12/24/16 10:00 Pulse Ox 100 12/24/16 10:00 Departure - Departure Time of Disposition: 10:20 Disposition: Home, Self-Care 01 Condition: good Clinical Impression: Anxiety, Vertigo Forms: ED Department Discharge Additional Instructions: Rest Proper Eating Program Increase intake of Fluids ( Water /Juice) Take prescribed medications only - Klonopin and Meclizine [facility] on Monday12/26/2016
== END 2016-12-24 10:25 | disposition home or self-care (01) ==
LOC: DL.ED 09:53
DX: F41.9 Anxiety disorder, unspecified (principal); R42 Dizziness and giddiness; K21.9 Gastro-esophageal reflux disease without esophagitis; F32.9 Major depressive disorder, single episode, unspecified; Z90.49 Acquired absence of other specified parts of digestive tract; Z79.899 Other long term (current) drug therapy; Z88.8 Allergy status to other drugs, medicaments and biological substances
CPT/HCPCS: 99284

== ENCOUNTER 2016-12-27 08:45 | Emergency (ER) | payer BC, MEDICAID, OTHER ==
[2016-12-27 09:07] VITALS: BP 101/80
--- NOTE | 2016-12-27 09:14 | EDM.PDOC ---
ED HPI GENERAL MEDICAL PROBLEM - General Stated Complaint: HEAD, SHAKY, MIXED BAG OF THINGS Time Seen by Provider: 12/27/16 08:58 Source of Information: Reports: Patient History Limitations: Reports: No limitations - History of Present Illness INITIAL COMMENTS - FREE TEXT/NARRATIVE: This 36 yo female patient reports to the ED with numerous problems. The patient reports she feels like her anxiety has increased. The patient has been seen numerous times in the ED, numerous times in the Clinic, one time in physical therapy and missed an appointment with [facility] [place]. The patient reports taking her medications as prescribed this morning, but she is still feeling anxious. The patient reports she has been eating well, drinking plenty of fluids and the PT has corrected her dizziness. 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: Other medication(s) - Related Data Allergies Allergy/AdvReac Type Severity Reaction Status Date / Time lorazepam [From Ativan] Allergy Agitation Verified 12/27/16 09:01 Home Meds: Home Meds ClonazePAM [KlonoPIN] 0.5 mg PO BEDTIME 07/22/16 [History] ClonazePAM [KlonoPIN] 0.5 mg PO QAM 07/22/16 [History] Pantoprazole Sodium [Protonix] 40 mg PO BID 09/28/16 [History] Citalopram Hydrobromide [Celexa] 20 mg PO BEDTIME 12/07/16 [History] Meclizine HCl 25 mg PO BID PRN 12/27/16 [History] Past Medical History - Past Health History Medical/Surgical History: Denies Medical/Surgical History HEENT History: Reports: Impaired vision Other HEENT History: wears glasses Cardiovascular History: Reports: None Respiratory History: Reports: None Gastrointestinal History: Reports: GERD Genitourinary History: Reports: None 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 OB/BYN History: c-sect Musculoskeletal History: Reports: None Neurological History: Reports: Migraines Psychiatric History: Reports: Anxiety, Depression, Learning disability, Suicide attempt, Suicidal ideation Other Psychiatric History: dependent personality disorder Endocrine/Metabolic History: Reports: None Hematologic History: Reports: None Immunologic History: Reports: None Oncologic (Cancer) History: Reports: None Dermatologic History: Reports: Eczema - Infectious Disease History Infectious Disease History: Reports: Chicken pox, Mumps - Past Surgical History Head Surgeries/Procedures: Reports: None HEENT Surgical History: Reports: Eye surgery Cardiovascular Surgical History: Reports: None Respiratory Surgical History: Reports: None GI Surgical History: Reports: Cholecystectomy Female Surgical History: Reports: section Endocrine Surgical History: Reports: None Neurological Surgical History: Reports: None Social & Family History - Family History Family Medical History: Noncontributory Cardiac: Reports: [place], Other (see below) Other Cardiac Family History: mom of cardiac arrest at age 52 : Reports: Renal disease/insufficiency Endocrine/Metabolic: Reports: Diabetes, type II - Tobacco Use Smoking Status *Q: Never Smoker Second Hand Smoke Exposure: No - Caffeine Use Caffeine Use: Reports: None - Alcohol Use Days Per Week of Alcohol Use: 0 - Recreational Drug Use Recreational Drug Use: No - Sexual History Sexual History: Reports: Sexually active - Living Situation & Occupation Living situation: Reports: Occupation: disabled ED ROS GENERAL - Review of Systems Review Of Systems: ROS reveals no pertinent complaints other than HPI. ED EXAM, GENERAL - Physical Exam Exam: See Below Exam Limited By: No limitations General Appearance: alert, WD/WN, anxious, mild distress, obese Eye Exam: bilateral eye: EOMI, normal inspection, PERRL Ears: normal external exam, normal canal, hearing grossly normal, normal TMs Nose: normal inspection, normal mucosa, no blood Throat/Mouth: Normal inspection, Normal lips, Normal teeth, Normal gums, Normal oropharynx, Normal voice, No airway compromise Head: atraumatic, normocephalic Neck: normal inspection, supple, non-tender, full range of motion Respiratory/Chest: no respiratory distress, lungs clear, normal breath sounds, no accessory muscle use, chest non-tender Cardiovascular: normal peripheral pulses, regular rate, rhythm, no edema, no gallop, no JVD, no murmur, no rub GI/Abdominal: normal bowel sounds, soft, non tender, no organomegaly, no distention, no abnormal bruit, no mass (Female) Exam: Deferred Rectal (Female) Exam: Deferred Back Exam: normal inspection, full range of motion, NT Extremities: normal inspection, normal range of motion, non-tender, normal capillary refill, no pedal edema Neurological: alert, oriented, CN II-XII intact, normal cognition, normal gait, no motor/sensory deficits Psychiatric: anxious, depressed mood Skin Exam: Warm, Dry, Intact, Normal color, No rash Lymphatic: no adenopathy Course - Vital Signs Last Recorded V/S: Last Vital Signs Temp 36.4 C 12/27/16 09:03 Pulse 96 12/27/16 09:03 Resp 14 12/27/16 09:03 BP 101/80 12/27/16 09:03 Pulse Ox 100 12/27/16 09:03 - Orders/Labs/Meds Labs: Laboratory Tests 12/27/16 12/27/16 Range/Units 09:12 09:12 WBC 4.3 L (5.0-10.0) 10^3/uL RBC 4.29 (4.2-5.4) 10^6/uL Hgb 11.1 L (12.0-16.0) g/dL Hct 35.5 L (37.0-47.0) % MCV 82.8 (80-100) fL MCH 25.9 L (27.0-34.0) pg MCHC 31.3 L (33.0-35.0) g/dL Plt Count 286 (150-450) 10^3/uL Neut % (Auto) 74.0 (42.2-75.2) % Lymph % (Auto) 17.4 L (20.5-50.1) % [place] % (Auto) 6.5 (2-8) % Eos % (Auto) 1.9 (1.0-3.0) % Baso % (Auto) 0.2 (0.0-1.0) % Sodium 136 (135-145) mmol/L Potassium 3.6 (3.6-5.0) mmol/L Chloride 106 (101-111) mmol/L Carbon Dioxide 25.0 (21.0-31.0) mmol/L Anion Gap 8.6 BUN 13 (7-18) mg/dL Creatinine 0.6 (0.6-1.3) mg/dL Est Cr Clr Drug Dosing 99.80 mL/min Estimated GFR (MDRD) > 60 BUN/Creatinine Ratio 21.66 Glucose 101 (74-105) mg/dL Calcium 9.0 (8.4-10.2) mg/dl Total Bilirubin 0.9 (0.2-1.0) mg/dL AST 18 (10-42) IU/L ALT 14 (10-60) IU/L Alkaline Phosphatase 59 (42-121) IU/L Total Protein 7.6 (6.7-8.2) g/dl Albumin 4.0 (3.2-5.5) g/dl Globulin 3.6 Albumin/Globulin Ratio 1.11 Departure - Departure Time of Disposition: 09:50 Disposition: Home, Self-Care 01 Condition: fair Clinical Impression: Anxiety Instructions: Panic Attacks, [id number] Care Plan Goals: The patient was advised of the examination and lab results during the visit. The patient was encouraged to continue to take her medications as prescribed. The patient [facility] with [facility] as [facility]. If the patient has any additional symptoms or concerns, the patient should visit her primary care facility, the [facility] or return to the emergency department.
[2016-12-27 09:41] LABS: CHLORIDE,CL 106 mmol/L (101-111); SODIUM,NA 136 mmol/L (135-145)
== END 2016-12-27 09:57 | disposition home or self-care (01) ==
LOC: DL.ED 08:45
DX: F41.9 Anxiety disorder, unspecified (principal); K21.9 Gastro-esophageal reflux disease without esophagitis; F32.9 Major depressive disorder, single episode, unspecified; Z79.899 Other long term (current) drug therapy; Z90.49 Acquired absence of other specified parts of digestive tract; Z88.8 Allergy status to other drugs, medicaments and biological substances
CPT/HCPCS: 36415; 80053; 85025; 99283

== ENCOUNTER 2016-12-29 14:19 | Emergency (ER) | payer MEDICAID ==
[2016-12-29 16:55] VITALS: BP 104/73
--- NOTE | 2016-12-29 17:01 | EDM.PDOC ---
ED HPI DIZZINESS - General Stated Complaint: [id number] NOT FEELING GOOD Time Seen by Provider: 12/29/16 16:50 Source of Information: Reports: Patient Exam Limitations: Reports: No limitations - History of Present Illness INITIAL COMMENTS - FREE TEXT/NARRATIVE: This 36 female patient returns to the ED due to dizziness. The patient reports she has not been taking her Meclizine as prescribed because her primary care provider warned her that the medication may make her fall. The patient has not returned to that provider for any additional medications or testing. The patient is scheduled to have an MRI through neurology [facility]ward the end of the month. The patient attempted to get help from the [facility] yesterday, but was not helped. Timing/Duration: Reports: Constant (chronic and continuous) Baseline Function: Reports: ambulatory, independent Quality: Reports: vertigo Severity: moderate - Related Data Allergies/ADRs: Allergies Allergy/AdvReac Type Severity Reaction Status Date / Time lorazepam [From Ativan] Allergy Agitation Verified 12/27/16 09:01 Home Meds: Home Meds ClonazePAM [KlonoPIN] 0.5 mg PO BEDTIME 07/22/16 [History] ClonazePAM [KlonoPIN] 0.5 mg PO QAM 07/22/16 [History] Pantoprazole Sodium [Protonix] 40 mg PO BID 09/28/16 [History] Citalopram Hydrobromide [Celexa] 20 mg PO BEDTIME 12/07/16 [History] Meclizine HCl 25 mg PO BID PRN 12/27/16 [History] Past Medical History - Past Health History Medical/Surgical History: Denies Medical/Surgical History HEENT History: Reports: Impaired vision Other HEENT History: wears glasses Cardiovascular History: Reports: None Respiratory History: Reports: None Gastrointestinal History: Reports: GERD Genitourinary History: Reports: None 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: Other OB/BYN History: c-sect Musculoskeletal History: Reports: None Neurological History: Reports: Migraines Psychiatric History: Reports: Anxiety, Depression, Learning disability, Suicide attempt, Suicidal ideation Other Psychiatric History: dependent personality disorder Endocrine/Metabolic History: Reports: None Hematologic History: Reports: None Immunologic History: Reports: None Oncologic (Cancer) History: Reports: None Dermatologic History: Reports: Eczema - Infectious Disease History Infectious Disease History: Reports: Chicken pox, Mumps - Past Surgical History Head Surgeries/Procedures: Reports: None HEENT Surgical History: Reports: Eye surgery Cardiovascular Surgical History: Reports: None Respiratory Surgical History: Reports: None GI Surgical History: Reports: Cholecystectomy Female Surgical History: Reports: section Endocrine Surgical History: Reports: None Neurological Surgical History: Reports: None Social & Family History - Family History Family Medical History: Noncontributory Cardiac: Reports: [place], Other (see below) Other Cardiac Family History: mom of cardiac arrest at age 52 : Reports: Renal disease/insufficiency Endocrine/Metabolic: Reports: Diabetes, type II - Tobacco Use Smoking Status *Q: Never Smoker Second Hand Smoke Exposure: No - Caffeine Use Caffeine Use: Reports: None - Alcohol Use Days Per Week of Alcohol Use: 0 - Recreational Drug Use Recreational Drug Use: No - Sexual History Sexual History: Reports: Sexually active - Living Situation & Occupation Living situation: Reports: Occupation: disabled ED ROS GENERAL - Review of Systems Review Of Systems: ROS reveals no pertinent complaints other than HPI. ED EXAM, DIZZINESS - Physical Exam Exam: See Below Exam Limited By: No limitations General Appearance: alert, WD/WN, anxious, mild distress, obese Eye Exam: bilateral eye: EOMI, normal inspection, PERRL Ears: normal external exam, normal canal, hearing grossly normal, normal TMs Nose: normal inspection, normal mucosa, no blood Throat/Mouth: Normal inspection, Normal lips, Normal teeth, Normal gums, Normal oropharynx, Normal voice, No airway compromise Head Exam: atraumatic, normocephalic Vertigo: constant Neck: normal inspection, supple, non-tender, full range of motion Respiratory/Chest: no respiratory distress, lungs clear, normal breath sounds, no accessory muscle use, chest non-tender Cardiovascular: normal peripheral pulses, regular rate, rhythm, no edema, no gallop, no JVD, no murmur, no rub GI/Abdominal: normal bowel sounds, soft, non tender, no organomegaly, no distention, no abnormal bruit, no mass (Female) Exam: Deferred Rectal (Female) Exam: Deferred Neurological: alert, normal mood/affect Back Exam: normal inspection, full range of motion, NT Extremities: normal inspection, normal range of motion, non-tender, no pedal edema, normal capillary refill Psychiatric: anxious, depressed mood, tearful Skin Exam: Warm, Dry, Intact, Normal color, No rash Course - Vital Signs Last Recorded V/S: Last Vital Signs Temp 36.2 C 12/29/16 16:30 Pulse 73 12/29/16 16:30 Resp 19 12/29/16 16:30 BP 104/73 12/29/16 16:30 Pulse Ox 98 12/29/16 16:30 Departure - Departure Time of Disposition: 16:56 Disposition: Home, Self-Care 01 Condition: fair Clinical Impression: Vertigo Instructions: Vertigo, [id number] Care Plan Goals: The patient was advised to take her medications as prescribed by her primary care facility. The patient should follow-up with her primary care facility for any additional assessment or treatments. The patient was encouraged to take her medications as prescribed by her primary care facility. The patient left prior to receiving discharge paperwork.
== END 2016-12-29 16:59 | disposition home or self-care (01) ==
LOC: DL.ED 14:19
DX: R42 Dizziness and giddiness (principal); K21.9 Gastro-esophageal reflux disease without esophagitis; G43.909 Migraine, unspecified, not intractable, without status migrainosus; F41.9 Anxiety disorder, unspecified; F32.9 Major depressive disorder, single episode, unspecified; Z90.49 Acquired absence of other specified parts of digestive tract; Z98.890 Other specified postprocedural states; Z88.8 Allergy status to other drugs, medicaments and biological substances
CPT/HCPCS: 99282

== ENCOUNTER 2016-12-31 14:22 | Emergency (ER) | payer MEDICAID ==
--- NOTE | 2016-12-31 15:51 | EDM.PDOC ---
ED HPI Behavioral Health - General Chief Complaint: Behavioral/Psych Stated Complaint: CHEST PAINS Time Seen by Provider: 12/31/16 15:45 Source of Information: Reports: Patient Exam Limitations: Reports: No limitations - History of Present Illness INITIAL COMMENTS - FREE TEXT/NARRATIVE: Jaylin Leung is a 36 year old female with a past medical history of anxiety, depression, and vertigo presenting to the ED with sensation of her heart racing. This started yesterday and she took her pulse radially and found it to be 80-120. She denies any triggers to this happening but states this sensation makes her feel very anxious about her physical health. She denies syncope or history of heart problems. She tells me she is feeling paranoid. Her anxiety us uncontrolled. She takes klonopin twice a day and tells me she "needs a PRN." She took 0.5 mg klonopin in the AM and took another 0.25 mg before coming in this afternoon. She is in group counseling once a week. She has an MRI next week regarding headaches and neck aches. She denies suicidal thoughts or actions. She denies homicidal thoughts or actions. - Related Data Allergies Allergy/AdvReac Type Severity Reaction Status Date / Time lorazepam [From Ativan] Allergy Agitation Verified 12/31/16 15:36 Home Medications: Home Meds ClonazePAM [KlonoPIN] 0.25 mg PO QAM 07/22/16 [History] ClonazePAM [KlonoPIN] 0.5 mg PO BEDTIME 07/22/16 [History] Pantoprazole Sodium [Protonix] 40 mg PO BID 09/28/16 [History] Citalopram Hydrobromide [Celexa] 20 mg PO BEDTIME 12/07/16 [History] Meclizine HCl 25 mg PO BID PRN 12/27/16 [History] Chest Pain Score (Numeric/FACES): 4 Past Medical History - Past Health History Medical/Surgical History: Denies Medical/Surgical History HEENT History: Reports: Impaired vision Other HEENT History: wears glasses Cardiovascular History: Reports: None Respiratory History: Reports: None Gastrointestinal History: Reports: GERD Genitourinary History: Reports: None 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 OB/BYN History: c-sect Musculoskeletal History: Reports: None Neurological History: Reports: Migraines Psychiatric History: Reports: Anxiety, Depression, Learning disability, Suicide attempt, Suicidal ideation Other Psychiatric History: dependent personality disorder Endocrine/Metabolic History: Reports: None Hematologic History: Reports: None Immunologic History: Reports: None Oncologic (Cancer) History: Reports: None Dermatologic History: Reports: Eczema - Infectious Disease History Infectious Disease History: Reports: Chicken pox, Mumps - Past Surgical History Head Surgeries/Procedures: Reports: None HEENT Surgical History: Reports: Eye surgery Cardiovascular Surgical History: Reports: None Respiratory Surgical History: Reports: None GI Surgical History: Reports: Cholecystectomy Female Surgical History: Reports: section Endocrine Surgical History: Reports: None Neurological Surgical History: Reports: None Social & Family History - Family History Family Medical History: Noncontributory Cardiac: Reports: [place], Other (see below) Other Cardiac Family History: mom of cardiac arrest at age 52 : Reports: Renal disease/insufficiency Endocrine/Metabolic: Reports: Diabetes, type II - Tobacco Use Smoking Status *Q: Never Smoker Second Hand Smoke Exposure: No - Caffeine Use Caffeine Use: Reports: None - Alcohol Use Days Per Week of Alcohol Use: 0 - Recreational Drug Use Recreational Drug Use: No - Sexual History Sexual History: Reports: Sexually active - Living Situation & Occupation Living situation: Reports: Occupation: disabled ED ROS GENERAL - Review of Systems Review Of Systems: See Below Constitutional: Reports: no symptoms. Denies: fever, chills, fatigue HEENT: Reports: No symptoms Respiratory: Denies: Shortness of Breath, Wheezing, Cough Cardiovascular: Reports: Palpitations. Denies: Chest pain, Dyspnea on exertion Endocrine: Denies: no symptoms GI/Abdominal: Reports: No symptoms. Denies: Abdominal pain, Nausea, Vomiting : Reports: no symptoms Musculoskeletal: Reports: other (shoulder and neck pain) Skin: Reports: no symptoms. Denies: rash Neurological: Reports: Headache. Denies: Difficulty Walking, Weakness Psychiatric: Reports: Agitation, Anxiety, Depression. Denies: Homicidal ideation, Suicidal ideation Hematologic/Lymphatic: Reports: no symptoms Immunologic: Reports: no symptoms ED EXAM, BEHAVIORAL HEALTH - Physical Exam Exam: See Below Exam Limited By: No limitations General Appearance: alert, moderate distress (due to being restless and anxious) Eye Exam: bilateral eye: PERRL Ears: normal external exam, normal canal, normal TMs Nose: normal inspection, normal mucosa Throat/Mouth: Normal inspection, Normal lips, Normal oropharynx Head: atraumatic, normocephalic Neck: normal inspection, supple, tender lateral (over the muscles which are tight and tender) Respiratory/Chest: no respiratory distress, lungs clear, normal breath sounds. No: crackles, rales, rhonchi, wheezing Cardiovascular: regular rate, rhythm, no edema, no murmur GI/Abdominal: normal bowel sounds, soft, non tender. No: distended, hepatomegaly, splenomegaly Back Exam: normal inspection, full range of motion Extremities: normal inspection, normal range of motion, non-tender, no pedal edema Neurological: alert, normal gait Psychiatric: alert, depressed mood, restless, tearful, agitated, paranoid thoughts. No: homicidal thoughts, suicidal plan, suicidal thoughts, tangential thoughts, auditory hallucinations, visual hallucinations, pressured speech, threatening behavior Skin Exam: Warm, Dry. No: No rash EKG INTERPRETATION EKG Date: 12/31/16 Rhythm: NSR Rate (beats/min): 62 [place]: normal P-wave: present QRS: normal ST-T: normal QT: normal EKG Interpretation Comments: normal COURSE, BEHAVIORAL HEALTH COMP - Course Vital Signs: Last Vital Signs Temp 96.3 F 12/31/16 15:29 Pulse 68 12/31/16 15:29 Resp 16 12/31/16 15:29 BP 108/56 L 12/31/16 15:29 Pulse Ox 100 12/31/16 15:29 Orders, Labs, Meds: Active Orders 24 hr Category Date Time Status EKG 12 Lead [EKG Documentation Completion] [RC] URGENT Care 12/31/16 15:57 Active Departure - Departure Time of Disposition: 16:37 Disposition: Home, Self-Care 01 Condition: fair Clinical Impression: Anxiety, Anxiety Forms: ED Department Discharge Additional Instructions: Please take your medications as directed and follow-up with your primary doctor on Monday. - My Orders Last 24 Hours: My Active Orders 12/31/16 15:57 EKG 12 Lead [EKG Documentation Completion] [RC] URGENT - Assessment/Plan Last 24 Hours: My Active Orders 12/31/16 15:57 EKG 12 Lead [EKG Documentation Completion] [RC] URGENT Assessment:: Anxiety Plan: Maikel vitals are stable and her EKG is normal. She has anxiety but she is not suicidal or homicidal. She has requested inpatient admission for anxiety management. We discussed that this is not appropriate in this case as a facility facility transfer; rather I would recommend follow-up with her PCP regarding adjustment of her medication and/or referral to psychiatry. She says she wants to see psychiatry but doesn't have a car to get there. She does have an appointment with her PCP on Monday. I have encouraged her to take her medications as directed and follow-up with her PCP on Monday. Questions were answered. She was disappointed with the lack of transfer to [place] but was in agreement with the plan. Questions were answered and worrisome symptoms prompting earlier follow-up such as suicidal thoughts or ideation was discussed.
[2016-12-31 17:04] VITALS: BP 95/47
--- NOTE | 2017-01-03 13:54 | EKG ---
12/31/2016 - JERMAINE CHILDS - A 12-lead EKG shows normal sinus rhythm with heart rate of 62. No significant ST elevation or ST depression noted on this 12-lead EKG, but nonspecific ST changes noted on lead V5, V6 and also lead V2, V3. Questionable ST elevation noted on lead 2 only, but not on lead 3 and AVF, which could be nonspecific at this time. [facility] /[id number]
== END 2016-12-31 17:07 | disposition home or self-care (01) ==
LOC: DL.ED 14:22
DX: F41.9 Anxiety disorder, unspecified (principal); K21.9 Gastro-esophageal reflux disease without esophagitis; F32.9 Major depressive disorder, single episode, unspecified; Z79.899 Other long term (current) drug therapy; Z88.8 Allergy status to other drugs, medicaments and biological substances
CPT/HCPCS: 93005; 99283

== ENCOUNTER 2017-01-01 11:41 | Emergency (ER) | payer MEDICAID ==
[2017-01-01 12:13] VITALS: BP 92/76
--- NOTE | 2017-01-01 13:55 | EDM.PDOC ---
ED [facility] Behavioral Health - General Chief Complaint: Behavioral/Psych Stated Complaint: Anxiety Time Seen by Provider: 01/01/17 12:30 Source of Information: Reports: Patient Exam Limitations: Reports: No limitations - History of Present Illness INITIAL COMMENTS - FREE TEXT/NARRATIVE: patient presents complaining of anxiety and wishing to be admitted to [place] for [place] Onset of Symptoms: Reports: today Duration of Symptoms: Reports: Chronic Severity: moderate Context, Behavioral Health: Reports: living situation, family dynamics Associated Symptoms: Reports: anxiety. Denies: hallucinations, auditory, homicidal thoughts, suicidal thought - Related Data Allergies Allergy/AdvReac Type Severity Reaction Status Date / Time lorazepam [From Ativan] Allergy Agitation Verified 12/31/16 15:36 Home Medications: Home Meds ClonazePAM [KlonoPIN] 0.25 mg PO QAM 07/22/16 [History] ClonazePAM [KlonoPIN] 0.5 mg PO BEDTIME 07/22/16 [History] Pantoprazole Sodium [Protonix] 40 mg PO BID 09/28/16 [History] Citalopram Hydrobromide [Celexa] 20 mg PO BEDTIME 12/07/16 [History] Meclizine HCl 25 mg PO BID PRN 12/27/16 [History] Past Medical History - Past Health History Medical/Surgical History: Denies Medical/Surgical History HEENT History: Reports: Impaired vision Other HEENT History: wears glasses Cardiovascular History: Reports: None Respiratory History: Reports: None Gastrointestinal History: Reports: GERD Genitourinary History: Reports: None 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 OB/BYN History: c-sect Musculoskeletal History: Reports: None Neurological History: Reports: Migraines Psychiatric History: Reports: Anxiety, Depression, Learning disability, Suicide attempt, Suicidal ideation Other Psychiatric History: dependent personality disorder Endocrine/Metabolic History: Reports: None Hematologic History: Reports: None Immunologic History: Reports: None Oncologic (Cancer) History: Reports: None Dermatologic History: Reports: Eczema - Infectious Disease History Infectious Disease History: Reports: Chicken pox, Mumps - Past Surgical History Head Surgeries/Procedures: Reports: None HEENT Surgical History: Reports: Eye surgery Cardiovascular Surgical History: Reports: None Respiratory Surgical History: Reports: None GI Surgical History: Reports: Cholecystectomy Female Surgical History: Reports: section Endocrine Surgical History: Reports: None Neurological Surgical History: Reports: None Social & Family History - Family History Family Medical History: Noncontributory Cardiac: Reports: [place], Other (see below) Other Cardiac Family History: mom of cardiac arrest at age 52 : Reports: Renal disease/insufficiency Endocrine/Metabolic: Reports: Diabetes, type II - Tobacco Use Smoking Status *Q: Never Smoker Second Hand Smoke Exposure: No - Caffeine Use Caffeine Use: Reports: None - Alcohol Use Days Per Week of Alcohol Use: 0 - Recreational Drug Use Recreational Drug Use: No - Sexual History Sexual History: Reports: Sexually active - Living Situation & Occupation Living situation: Reports: Occupation: disabled ED ROS GENERAL - Review of Systems Review Of Systems: See Below Constitutional: Reports: no symptoms HEENT: Reports: No symptoms Respiratory: Reports: No Symptoms Cardiovascular: Reports: No symptoms Endocrine: Reports: no symptoms GI/Abdominal: Reports: No symptoms Psychiatric: Reports: Anxiety, Depression. Denies: Hallucinations, Homicidal ideation, Suicidal ideation ED EXAM, BEHAVIORAL HEALTH - Physical Exam Exam: See Below Exam Limited By: No limitations General Appearance: alert, no apparent distress Neurological: alert, CN II-XII intact, oriented x 3 Psychiatric: alert COURSE, BEHAVIORAL HEALTH COMP - Course Vital Signs: Last Vital Signs Temp 96.5 F 01/01/17 11:55 Pulse 72 01/01/17 11:55 Resp 16 01/01/17 11:55 BP 92/76 01/01/17 11:55 Pulse Ox 100 01/01/17 11:55 Medical Clearance: patient has no underlying medical issues. Patient was evaluated by crisis management and patient is not suicidal or a threat to her self at this time. 01/01/17 13:55 Departure - Departure Time of Disposition: 13:56 Disposition: Home, Self-Care 01 Condition: good Clinical Impression: Anxiety Instructions: Panic Attacks, Oard-sh-Oxda Forms: ED Department Discharge Additional Instructions: followup with crisis management this week.
== END 2017-01-01 14:20 | disposition home or self-care (01) ==
LOC: DL.ED 11:41
DX: F41.9 Anxiety disorder, unspecified (principal); K21.9 Gastro-esophageal reflux disease without esophagitis; F32.9 Major depressive disorder, single episode, unspecified; Z90.49 Acquired absence of other specified parts of digestive tract; Z79.899 Other long term (current) drug therapy; Z88.8 Allergy status to other drugs, medicaments and biological substances
CPT/HCPCS: 99285